=== PATIENT | male | born 1960 | race Caucasian/White ===

== ENCOUNTER → 2020-12-11 08:27 | Outpatient (BNVA) | payer OTHER, SELFPAY | PROVIDERS: PCP Internal Medicine; Visit Provider Urology ==

== ENCOUNTER 2023-05-26 09:00 | Outpatient (AMB) | payer OTHER, SELFPAY ==
--- NOTE | 2023-05-26 09:12 | MHC.OFFVIS ---
Intake Intake Visit Reasons: 1 year follow up Intake Note: Patient is present for Follow Up Urology Med: Tadalafil Antibiotic Allergy:None Blood Thinner: None [facility] Allergies No Known Allergies Allergy (Verified 03/24/22 11:20) Medication List - Last Reconciled 05/26/23 by Javed Levy MD amlodipine 5 mg PO DAILY atorvastatin 20 mg PO DAILY metoprolol succinate ER 100 mg PO DAILY metoprolol succinate ER 150 mg PO DAILY tadalafil 5 mg PO DAILY PRN 90 days HPI HPI Comments History of Present Illness Details Conner BRICE is a very pleasant male. He is a patient of Dr Calixto. He is seen for the following urologic issues - Peyronie's disease - erectile dysfunction Curvature stable Consistent erections Tadalafil prescription refilled Review in 12 months Peyronie's Disease: Overall stable curvature Would continue with low-dose ED medication. Using daily tadalafil. The patient presents for stable with dorsal curvature and caclification - happy with current condition - stable curvature. Primary complaint is penile curvature, to the right, dorsally. The problem has been present a number of months. At this time he experiences partial erections sufficient for penetrative intercourse, that last until ejaculation. [place] has is possible but painful. Associated symptoms include penile pain No penile discharge No Prior management includes no treatment to date. Strength of urinary stream no change. Investigation results 02/09 , penile ultrasound - calcification dorsal - T 350. Natural history of Peyronie's and treatment options have bee Continue with low-dose tadalafil and use of vacuum pump [facility] Medical History Erectile dysfunction due to arterial insufficiency Peyronie's disease Review of Systems Const Denies chills and Denies fever(s) Card Reports no additional complaints and Denies syncope Resp Denies cough GI Denies abdominal pain and Denies heartburn Reports as per HPI and Denies change in libido Neuro Denies syncope Psych Denies change in libido Endo Denies change in libido Physical Exam Const General: cooperative, healthy appearing, comfortable and no acute distress Orientation/consciousness: patient oriented x3 HEENT Face and sinus: Yes normal facial exam Mouth: moist mucous membranes Neck Neck: Yes normal visual inspection, Yes full ROM and Yes trachea midline Chest Chest palpation & inspection: normal inspection of the chest Resp Effort & Inspection: normal respiratory effort, able to speak in complete sentences and no respiratory distress GI Inspection: Yes normal to inspection Back/Spine/Pelvis Cervical Spine: normal cervical lordosis Thoracic/Lumbar Spine: thoracic and lumbar spine normal to inspection Skin General skin exam: no rashes or lesions noted Neuro General: patient oriented x3, gait normal, tone normal and moves all extremities Extrem General: Yes normal to inspection and Yes capillary refill normal Assessment & Plan Assessment & Plan (1) Peyronie's disease: Code(s): N48.6 - Induration penis plastica (2) Erectile dysfunction due to arterial insufficiency: Code(s): N52.01 - Erectile dysfunction due to arterial insufficiency Plan 12 month follow-up Medications: Refilled tadalafil 5 mg PO DAILY PRN 90 tabs 3RF sexual activity 90 days Patient Instructions: Imaging studies, laboratory and physical exam results were discussed and reviewed in detail. No major barriers to patient understanding were identified. An opportunity to ask questions regarding the treatment plan was provided. All questions were answered. The patient expressed understanding and agreement with the above treatment plan. The patient is aware they should contact our office by phone for worsening of their current condition or the appearance of new urologic symptoms. Compliance is encouraged with any medications and followup testing that is ordered. It is a privilege to participate in the urologic care of your patient. If you have any questions or concerns regarding treatment for the above conditions, or other urologic issues, please do not hesitate to contact me. The office telephone contact is [phone]. This note is constructed using voice recognition software. While every effort has been made to ensure accuracy commercial baker helper errors may have been included. Yours sincerely, Dr Javed Levy MD, [facility] - Urology Providers of Expert, Compassionate Care for the Genitourinary System Coding Level of Care Code Est Pt Level 4 (79117) Diagnoses Peyronie's disease N48.6 Erectile dysfunction due to arterial insufficiency N52.01
== END 2023-05-26 09:26 | disposition home or self-care (01) ==
PROVIDERS: PCP Internal Medicine; Visit Provider Urology
DX: N48.6 Induration penis plastica (principal); N52.01 Erectile dysfunction due to arterial insufficiency
CPT/HCPCS: 99213

== ENCOUNTER → 2023-05-26 09:00 | Outpatient (BNVA) | payer OTHER, SELFPAY | PROVIDERS: Visit Provider Urology ==

== ENCOUNTER 2024-05-31 08:22 | Outpatient (AMB) | payer OTHER, SELFPAY ==
--- NOTE | 2024-05-31 08:26 | MHC.OFFVIS ---
Intake Visit Reasons: 1Y Follow Up-Erectile Dysfunction Intake Note: Patient is present for Follow Up Erectile Dysfunction Urology Med: Tadalafil Antibiotic Allergy:None Blood Thinner: None [facility] Senior Software Manager Required: No Accompanied by: Self / Same As Patient Allergies No Known Allergies Allergy (Verified 05/31/24 08:31) HPI Comments Details: Conner BRICE is a very pleasant male. He is a patient of Dr Calixto. He is seen for the following urologic issues - Peyronie's disease - erectile dysfunction Yearly review Continues with tadalafil - low-dose daily Primary care checked PSA Adequate stream Peyronie's Disease: Overall stable curvature Would continue with low-dose ED medication. Using daily tadalafil. The patient presents for stable with dorsal curvature and caclification - happy with current condition - stable curvature. Primary complaint is penile curvature, to the right, dorsally. The problem has been present a number of months. At this time he experiences partial erections sufficient for penetrative intercourse, that last until ejaculation. [place] has is possible but painful. Associated symptoms include penile pain No penile discharge No Prior management includes no treatment to date. Strength of urinary stream no change. Investigation results 02/09 , penile ultrasound - calcification dorsal - T 350. Natural history of Peyronie's and treatment options have bee Continue with low-dose tadalafil and use of vacuum pump [facility] Medical History Peyronie's disease Erectile dysfunction due to arterial insufficiency Review of Systems Const Denies chills and Denies fever(s) Card Reports no additional complaints and Denies syncope Resp Denies cough GI Denies abdominal pain and Denies heartburn Reports as per HPI and Denies change in libido Neuro Denies syncope Psych Denies change in libido Endo Denies change in libido Physical Exam Const General: cooperative, healthy appearing, comfortable and no acute distress Orientation/consciousness: patient oriented x3 HEENT Face and sinus: Yes normal facial exam Mouth: moist mucous membranes Neck Neck: Yes normal visual inspection, Yes full ROM and Yes trachea midline Chest Chest palpation & inspection: normal inspection of the chest Resp Effort & Inspection: normal respiratory effort, able to speak in complete sentences and no respiratory distress GI Inspection: Yes normal to inspection Back/Spine/Pelvis Cervical Spine: normal cervical lordosis Thoracic/Lumbar Spine: thoracic and lumbar spine normal to inspection Skin General skin exam: no rashes or lesions noted Neuro General: patient oriented x3, gait normal, tone normal and moves all extremities Extrem General: Yes normal to inspection and Yes capillary refill normal Assessment & Plan Assessment & Plan (1) Peyronie's disease: Code(s): N48.6 - Induration penis plastica Category: Medical (2) Erectile dysfunction due to arterial insufficiency: Code(s): N52.01 - Erectile dysfunction due to arterial insufficiency Category: Medical Plan Twelve month follow-up Patient Instructions: Imaging studies, laboratory and physical exam results were discussed and reviewed in detail. No major barriers to patient understanding were identified. An opportunity to ask questions regarding the treatment plan was provided. All questions were answered. The patient expressed understanding and agreement with the above treatment plan. The patient is aware they should contact our office by phone for worsening of their current condition or the appearance of new urologic symptoms. Compliance is encouraged with any medications and followup testing that is ordered. It is a privilege to participate in the urologic care of your patient. If you have any questions or concerns regarding treatment for the above conditions, or other urologic issues, please do not hesitate to contact me. The office telephone contact is [phone]. This note is constructed using voice recognition software. While every effort has been made to ensure accuracy machinery erector errors may have been included. Yours sincerely, Dr Javed Levy MD, [facility] - Urology Providers of Expert, Compassionate Care for the Genitourinary System Coding Level of Care Code Est Pt Level 4 (20675) Diagnoses Peyronie's disease N48.6 Erectile dysfunction due to arterial insufficiency N52.01
== END 2024-05-31 08:39 | disposition home or self-care (01) ==
PROVIDERS: PCP Internal Medicine; Visit Provider Urology
DX: N48.6 Induration penis plastica (principal); N52.01 Erectile dysfunction due to arterial insufficiency
CPT/HCPCS: 99214

== ENCOUNTER → 2024-05-31 08:22 | Outpatient (BNVA) | payer OTHER, SELFPAY | PROVIDERS: PCP Internal Medicine; Visit Provider Urology ==

== ENCOUNTER 2025-06-06 08:26 | Outpatient (AMB) | payer OTHER, SELFPAY ==
--- NOTE | 2025-06-06 08:36 | MHC.OFFVIS ---
Intake Visit Reasons: 1y follow up/Erectile Dysfunction Intake Note: Patient is present for Follow Up Erectile Dysfunction Urology Med: Tadalafil Antibiotic Allergy:None Blood Thinner: Aspirin Administrative Services Officer Required: No Accompanied by: Self / Same As Patient Allergies No Known Allergies Allergy (Verified 05/31/24 08:31) HPI Comments Details: Conner BRICE is a very pleasant male. He is a patient of Dr Calixto. He is seen for the following urologic issues - Peyronie's disease - erectile dysfunction Yearly review Continues with tadalafil - low-dose daily Primary care checked PSA Adequate stream Peyronie's remained stable Peyronie's Disease: Overall stable curvature Would continue with low-dose ED medication. Using daily tadalafil. The patient presents for stable with dorsal curvature and caclification - happy with current condition - stable curvature. Primary complaint is penile curvature, to the right, dorsally. The problem has been present a number of months. At this time he experiences partial erections sufficient for penetrative intercourse, that last until ejaculation. [place] has is possible but painful. Associated symptoms include penile pain No penile discharge No Prior management includes no treatment to date. Strength of urinary stream no change. Investigation results 02/09 , penile ultrasound - calcification dorsal - T 350. Natural history of Peyronie's and treatment options have bee Continue with low-dose tadalafil and use of vacuum pump [facility] Medical History Peyronie's disease Erectile dysfunction due to arterial insufficiency Review of Systems Const Denies chills and Denies fever(s) Card Reports no additional complaints and Denies syncope Resp Denies cough GI Denies abdominal pain and Denies heartburn Reports as per HPI and Denies change in libido Neuro Denies syncope Psych Denies change in libido Endo Denies change in libido Physical Exam Const General: cooperative, healthy appearing, comfortable and no acute distress Orientation/consciousness: patient oriented x3 HEENT Face and sinus: Yes normal facial exam Mouth: moist mucous membranes Neck Neck: Yes normal visual inspection, Yes full ROM and Yes trachea midline Chest Chest palpation & inspection: normal inspection of the chest Resp Effort & Inspection: normal respiratory effort, able to speak in complete sentences and no respiratory distress GI Inspection: Yes normal to inspection Back/Spine/Pelvis Cervical Spine: normal cervical lordosis Thoracic/Lumbar Spine: thoracic and lumbar spine normal to inspection Skin General skin exam: no rashes or lesions noted Neuro General: patient oriented x3, gait normal, tone normal and moves all extremities Extrem General: Yes normal to inspection and Yes capillary refill normal Assessment & Plan Assessment & Plan (1) Erectile dysfunction due to arterial insufficiency: Code(s): N52.01 - Erectile dysfunction due to arterial insufficiency Category: Medical (2) Peyronie's disease: Code(s): N48.6 - Induration penis plastica Category: Medical Plan Twelve month follow-up Medications: Changed From tadalafil 5 mg PO DAILY 90 days PRN 90 tabs 3RF sexual activity N52.01 - Erectile dysfunction due to arterial insufficiency To tadalafil 5 mg PO DAILY 90 tabs 3RF sexual activity 90 days N52.01 - Erectile dysfunction due to arterial insufficiency Patient Instructions: This note is constructed using voice recognition software. While every effort has been made to ensure accuracy dusting and brushing machine operator errors may have been included. Imaging studies, laboratory and physical exam results were discussed and reviewed in detail. No major barriers to patient understanding were identified. An opportunity to ask questions regarding the treatment plan was provided. All questions were answered. The patient expressed understanding and agreement with the above treatment plan. The patient is aware they should contact our office by phone for worsening of their current condition or the appearance of new urologic symptoms. Compliance is encouraged with any medications and followup testing that is ordered. It is a privilege to participate in the urologic care of your patient. If you have any questions or concerns regarding treatment for the above conditions, or other urologic issues, please do not hesitate to contact me. The office telephone contact is [phone]. Sincerely, Dr Javed Levy MD, [facility] - Urology Compassionate Specialist Care for the Genitourinary System Coding Level of Care Code Est Pt Level 4 (52802) Diagnoses Erectile dysfunction due to arterial insufficiency N52.01 Peyronie's disease N48.6
--- OUTSIDE RECORDS SUMMARY | 2025-06-06 08:56 | XMS_ITS | Patient Health Record ---
[facility] Address [address] [place] [address] Care Team Providers Care Loan Review Manager Name Role Phone Clifford Calixto MD Primary Care Provider Navid Alegre Unavailable [phone] Allergies Allergen (clinical drug ingredient) Drug/Non Drug Allergy documented on EMR Reaction Allergy Type Onset Date Status etomidate Etomidate Unknown Drug Allergy Active Reason For Referral No Information Medications Medication SIG (Take, Route, Frequency, Duration) Notes Start Date End Date Status Atorvastatin Calcium Active Metoprolol Succinate 25 mg Active Flecainide Acetate 50 MG Orally Not-Taking Augmentin 875-125 MG 1 tablet Orally muna ry 12 hrs; Duration: 10 day(s) 07/03/2018 Not-Taking Social History Tobacco Use: Social History Observation Description Date Details (start date - stop date) Former Smoker NA - NA Tobacco Use/Smoking Question Answer Notes Are you a: former smoker When did you stop smoking? 1999 Additional Findings: Tobacco Non-User Cu rrent non-smoker,Ex-moderate cigarette smoker (10-19/day) Alcohol Screen Question Answer Notes Did you have a drink contain ing alcohol in the past year? Yes How often did you have a dri nk containing alcohol in the past year? 2 to 4 times a month (2 points) Points 2 Interpretation Negative Tobacco use other than smoking: Question Answer Notes Are you an other tobacco user? No Plan Of Treatment Pending Test Test Name Order Date 21778-Balggemn Plate 01/17/2017 [id number] Plate 08/07/2017 [id number] 05/25/2018 34024- Debride <25 sq cm 06/12/2018 09109- Debride <25 sq cm 07/03/2018 97452- Debride <25 sq cm 07/17/2018 38731 I&D ABSCESS- SIMPLE,SINGLE 018 [id number] I&D ABSCESS- SIMPLE,SINGLE 017 Insurance Providers Payer Name Payer Address Payer Phone Subscriber Number Group Number Insured Name Patient Relationship to Insured Coverage Start Date Coverage End Date [facility] [address] [place], [id number] Conner Tenorio Self - patient is the insured 4 Medical (General) History Medical History History ICD Code Joint implants/screws Surgical History Surgery Date(Month/Year) ear surgery umbilical hernia repair Afib Ablasion 06/08/16 Distal bicep tendon repair 09/2014
== END 2025-06-06 08:53 | disposition home or self-care (01) ==
LOC: HO.HUSH 08:27
PROVIDERS: PCP Internal Medicine; Visit Provider Urology
DX: N52.01 Erectile dysfunction due to arterial insufficiency (principal); N48.6 Induration penis plastica
CPT/HCPCS: 99214